=== PATIENT | female | born 1980 | race Caucasian/White ===

== ENCOUNTER → 2019-08-27 | Outpatient (CLI) | payer OTHER ==
[~2019-08-27] MED LIST: FRS325T PO; MULT-241 PO; OXYC-12 PO
--- NOTE | 2019-08-27 14:39 | Diagnostic Imaging Report ---
INDICATION: Left leg pain and cramping. TIME OF EXAM: 2:17 PM Frontal and lateral views of left tibia and fibula were obtained. Alignment at the knee and ankle is normal. The tibia and fibula appear to be intact. No fractures are identified. IMPRESSION: No acute bony abnormality is detected. Dictated by: Dictated on workstation # [id number]
== END ==
LOC: RAD FS 13:51
PROVIDERS: ATTEND Nurse Practitioner
DX: M79.605 Pain in left leg (principal)
CPT/HCPCS: 73590